=== PATIENT | male | born 1975 | race Caucasian/White ===

== ENCOUNTER → 2022-04-25 | Outpatient (CLI) | payer OTHER ==
[~2022-04-25] MED LIST: CODACE30 PO; Cleocin HCl150 MG PO; DIAZ5 PO; GENT.3OPSA OD; HYDACE5 PO; HYDACE5325 PO; HYDR1TAB94 PO; MULVITMINF PO; Naprosyn500 MG PO; OMEP40CA12 PO; PENVK500 PO; PRED20 PO; PROM25 PO; Prednisone20 MG PO; SULF10OPSA OD; ZOLP5 PO
[2022-04-25 17:49] LABS: Source, Urine Voided
[2022-04-25 18:53] LABS: Amorphous Light (0-Heavy); Bacteria Mod /hpf; Mucus Light (0-Heavy); Red Blood Cells, Urine 0-2 /hpf (0-2); Squamous Epithelial Cells Rare /hpf (Few); White Blood Cells, Urine 0-2 /hpf (0-5)
== END | disposition home or self-care (01) ==
LOC: LAB 17:47 → LAB SHORT 17:47
PROVIDERS: Student in an Organized Health Care Education/Training Program
DX: R30.0 Dysuria (principal)
CPT/HCPCS: 81015; 87086

== ENCOUNTER 2022-05-11 16:34 | Emergency (ER) | payer OTHER | END 2022-05-11 21:53 | disposition home or self-care (01) | DX: K40.90 Unilateral inguinal hernia, without obstruction or gangrene, not specified as recurrent (principal); Z79.899 Other long term (current) drug therapy ==

== ENCOUNTER 2022-05-13 18:26 | Emergency (ER) | payer OTHER ==
[~2022-05-13] VITALS: Ht 172.7 cm; Wt 81.7 kg
[2022-05-13] MEDS ORDERED: LOSARTAN POTASS25 M2 PO (20:19)
[2022-05-13] MEDS ORDERED: HYDHCL25 PO (20:19)
[2022-05-13] MEDS ORDERED: HYDR1TAB94 PO (21:10)
[2022-05-13] MEDS ORDERED: Colace100 MG PO (21:10)
== END 2022-05-13 21:20 | disposition home or self-care (01) ==
LOC: ER 18:26
DX: K40.90 Unilateral inguinal hernia, without obstruction or gangrene, not specified as recurrent (principal); Z79.899 Other long term (current) drug therapy
CPT/HCPCS: 76870

== ENCOUNTER 2022-08-25 20:24 | Emergency (ER) | payer OTHER ==
[~2022-08-25] VITALS: Ht 172.7 cm; Wt 83.9 kg
[~2022-08-25 20:24] MED LIST changes: +BUPR150ER PO; +Colace100 MG PO; +HYDHCL25 PO; +LOSARTAN POTASS25 M2 PO; +MIRT15 PO
[2022-08-25] MEDS ORDERED: ONDA4ODT MM (21:14)
== END 2022-08-25 21:31 | disposition home or self-care (01) ==
LOC: ER 20:24
DX: K40.90 Unilateral inguinal hernia, without obstruction or gangrene, not specified as recurrent (principal); Z79.899 Other long term (current) drug therapy
CPT/HCPCS: 99282

== ENCOUNTER 2022-09-07 17:19 | Emergency (ER) | payer OTHER ==
[~2022-09-07] VITALS: Ht 172.7 cm; Wt 86.2 kg
[~2022-09-07 17:19] MED LIST changes: +ONDA4ODT MM
== END 2022-09-07 19:35 | disposition home or self-care (01) ==
LOC: ER 17:19
DX: K40.90 Unilateral inguinal hernia, without obstruction or gangrene, not specified as recurrent (principal); Z79.899 Other long term (current) drug therapy
CPT/HCPCS: 76857

== ENCOUNTER 2022-09-19 06:09 | Day surgery (SDC) | payer OTHER ==
[~2022-09-19] VITALS: Ht 172.7 cm; Wt 87.1 kg
[2022-09-19] MEDS ORDERED: MELO7.5 (06:34)
--- NOTE | 2022-09-19 07:28 | NUR ---
Ambulatory in Day Surgery WITH STEADY GAIT. Surgical site prepped with 2% Chlorhexidine cloth wipe. History, Chart, Medications and Allergies reviewed before start of procedure. Patient confirms NPO status and agrees with scheduled surgery. Pre-Op teaching done. Pt verbalizes understanding. Patient States Post-Procedure ride home has been arranged WITH STEP DAD. DR. PAYTON NOTIFIED OF PT STOPPING MOBIC ON 09/17/22. DR CORDOVA NOTIFIED OF NO ORDERS FROM SURGEON FOR EKG CBC, OR CHEM PANEL. DR CORDOVA OKAYED PROCEDING WITHOUT WELL.
--- NOTE | 2022-09-19 10:22 | NUR ---
REPORT FROM ARMIDA VENTURA RN. PT AXOX4, ABLE TO REPOSTION SELF IN BED. REQUESTING AND TOLERATING PO FLUIDS. PT HAS THREE INCISION SITES ON ABD THAT ARE COVERED WITH DERMABOND AND ARE CDI. NO SWELLING, INFLAMMATION, DRAINAGE NOTED. PT REPORTS 0/10 PAIN ON INCISION SITES, BUT A 6/10 PRESSURE PAIN IN LOWER ABDOMEN HE SAYS IS CHRONIC.
--- NOTE | 2022-09-19 10:54 | NUR ---
Patient up to Ambulate independently. Gait steady. Discharge instructions reviewed with patient. Patient verbalizes understanding. Copy given to patient to take home. Dressing to procedure site clean, dry, intact with no visible drainage, swelling, erythema or bruising noted. Patient States Post-Procedure ride home has been arranged. Discharged via wheelchair to private car for ride home. ALL BELONGINGS RETURNED TO PATIENT THAT HE CAME TO [facility] WITH.
== END 2022-09-19 22:43 | disposition home or self-care (01) ==
LOC: ORSCMMR 06:09 → ORD 07:30 → ORSCMMR 07:30
DX: K40.90 Unilateral inguinal hernia, without obstruction or gangrene, not specified as recurrent (principal); K45.8 Other specified abdominal hernia without obstruction or gangrene; G47.33 Obstructive sleep apnea (adult) (pediatric)
CPT/HCPCS: 49650; S2900; A9270; C1781; J0690; J1100; J1885; J2250; J2370; J2405; J2704; J2795; J3010; J7120

== ENCOUNTER 2023-02-04 20:01 | Emergency (ER) | payer OTHER ==
[~2023-02-04] VITALS: Ht 180.3 cm; Wt 79.4 kg
[~2023-02-04 20:01] MED LIST changes: +MELO7.5
[2023-02-04 20:09] VITALS: BP 156/100
== END 2023-02-04 20:17 | disposition home or self-care (01) ==
LOC: ER 20:01
DX: I10 Essential (primary) hypertension (principal)
CPT/HCPCS: 99282

== ENCOUNTER 2023-09-22 18:35 | Emergency (ER) | payer OTHER ==
[~2023-09-22] VITALS: Ht 172.7 cm; Wt 81.7 kg
[~2023-09-22 18:35] MED LIST changes: +ALEVAZOL56.7 G1 TOP
[2023-09-22 18:42] VITALS: BP 153/93
== END 2023-09-22 18:49 | disposition home or self-care (01) ==
LOC: ER 18:35
DX: R23.4 Changes in skin texture (principal); Z87.828 Personal history of other (healed) physical injury and trauma
CPT/HCPCS: 99283

== ENCOUNTER 2023-10-08 21:14 | Emergency (ER) | payer OTHER ==
[~2023-10-08] VITALS: Ht 177.8 cm; Wt 86.2 kg
[2023-10-08 21:33] VITALS: BP 140/82
== END 2023-10-08 21:39 | disposition home or self-care (01) ==
LOC: ER 21:14
DX: Z48.815 Encounter for surgical aftercare following surgery on the digestive system (principal)
CPT/HCPCS: 99282

== ENCOUNTER 2024-01-03 17:06 | Emergency (ER) | payer OTHER ==
[~2024-01-03] VITALS: Ht 172.7 cm; Wt 81.7 kg
[2024-01-03 17:12] VITALS: BP 153/93
== END 2024-01-03 18:10 | disposition home or self-care (01) ==
LOC: ER 17:06
DX: T67.5XXA Heat exhaustion, unspecified, initial encounter (principal); F41.9 Anxiety disorder, unspecified
CPT/HCPCS: 99282

== ENCOUNTER 2024-01-07 22:14 | Emergency (ER) | payer OTHER ==
[~2024-01-07] VITALS: Ht 177.8 cm; Wt 79.4 kg
[2024-01-07 22:21] VITALS: BP 146/91
== END 2024-01-07 22:27 | disposition home or self-care (01) ==
LOC: ER 22:14
DX: R10.31 Right lower quadrant pain (principal)
CPT/HCPCS: 99283

== ENCOUNTER 2024-01-10 11:36 | Emergency (ER) | payer OTHER ==
[~2024-01-10] VITALS: Ht 172.7 cm; Wt 79.4 kg
[2024-01-10 11:52] VITALS: BP 154/107
[2024-01-10] MEDS ORDERED: MUPIROCIN1 G1 TOP (12:22)
== END 2024-01-10 12:32 | disposition home or self-care (01) ==
LOC: ER 11:36
DX: L89.899 Pressure ulcer of other site, unspecified stage (principal)
CPT/HCPCS: 99283

== ENCOUNTER 2024-02-22 09:55 | Emergency (ER) | payer OTHER ==
[~2024-02-22] VITALS: Ht 172.7 cm; Wt 79.4 kg
[~2024-02-22 09:55] MED LIST changes: +AMOCLA875 PO; +IBUP800 PO; +MUPIROCIN1 G1 TOP
[2024-02-22 10:13] VITALS: BP 145/88
[2024-02-22] MEDS ORDERED: Mupirocin 2% Ointment 22 GM TOP ONE (10:15)
== END 2024-02-22 10:47 | disposition home or self-care (01) ==
LOC: ER 09:55
DX: S50.312A Abrasion of left elbow, initial encounter (principal); X58.XXXA Exposure to other specified factors, initial encounter; Z88.1 Allergy status to other antibiotic agents; Z79.899 Other long term (current) drug therapy; Z59.00 Homelessness unspecified
CPT/HCPCS: 82947; A9270

== ENCOUNTER 2024-03-02 20:40 | Emergency (ER) | payer OTHER ==
[~2024-03-02] VITALS: Ht 172.7 cm; Wt 81.7 kg
[2024-03-02 20:49] VITALS: BP 153/83
== END 2024-03-02 21:09 | disposition left against medical advice (07) ==
LOC: ER 20:40
DX: R06.02 Shortness of breath (principal); Z53.29 Procedure and treatment not carried out because of patient's decision for other reasons
CPT/HCPCS: 99281

== ENCOUNTER 2025-03-15 20:21 | Emergency (ER) | payer OTHER ==
[~2025-03-15] VITALS: Ht 172.7 cm; Wt 78.5 kg
[2025-03-15 20:37] VITALS: BP 157/101
== END 2025-03-15 20:42 | disposition home or self-care (01) ==
LOC: ER 20:21
DX: Z77.098 Contact with and (suspected) exposure to other hazardous, chiefly nonmedicinal, chemicals (principal); Z88.8 Allergy status to other drugs, medicaments and biological substances; Z79.899 Other long term (current) drug therapy; Z59.89 Other problems related to housing and economic circumstances; X58.XXXA Exposure to other specified factors, initial encounter
CPT/HCPCS: 99283